=== PATIENT | female | born 1955 | race Caucasian/White ===

== ENCOUNTER 2018-04-04 07:58 | Outpatient (CLI) | payer OTHER ==
[2018-04-04 08:25] LABS: Hemoglobin 15.5 g/dL (12.0-16.0)
[2018-04-04 08:35] LABS: ALT (SGPT) 15 U/L (8-55); AST (SGOT) 20 U/L (5-34); Albumin 4.3 g/dL (3.4-4.8); Alkaline Phosphatase 45 U/L (40-150); Anion Gap 13 mmol/L (10-20); BUN (Urea Nitrogen) 18 mg/dL (9.8-20.1); Bilirubin, Total 0.8 mg/dL (0.2-1.2); Calc. Creatinine Clearance 0 mL/min (70-130); Calcium 9.9 mg/dL (7.8-10.44); Carbon Dioxide 29 mmol/L (23-31); Cardiac Risk 3.2 (Less than 4.5); Chloride 102 mmol/L (98-107); Cholesterol 190 mg/dl (< 200 Desired); Estimated GFR-MDRD 69; Glucose 96 mg/dL (80-115); HDL Cholesterol 60 mg/dL (>60 Neg Risk); LDL Cholesterol, Calculated 95 mg/dL; Potassium 3.9 mmol/L (3.5-5.1); Protein, Total 7.3 g/dL (6.0-8.3); Sodium 140 mmol/L (136-145); Triglycerides 176 mg/dL (Less than 150)
== END 2018-04-04 07:59 | disposition home or self-care (01) ==
LOC: SCSRAD 07:58
PROVIDERS: ATTEND Otolaryngology Otolaryngic Allergy
DX: Z01.818 Encounter for other preprocedural examination (principal); J34.2 Deviated nasal septum; J34.3 Hypertrophy of nasal turbinates; E78.5 Hyperlipidemia, unspecified
CPT/HCPCS: 36415; 80053; 80061; 85014; 85018

== ENCOUNTER 2018-11-05 10:41 | Outpatient (CLI) | payer BC ==
--- NOTE | 2018-11-05 12:16 | MMO ---
BILATERAL MAMMOGRAMS: History: Screening mammography. Comparison: Multiple exams back to 09-08-13. FINDINGS: This study is interpreted with the assistance of computer aided detection. Scattered fibroglandular densities. No dominant mass or suspicious calcification. IMPRESSION: BIRADS category 1 - negative. Suggest routine follow up. POS: [facility]
== END 2018-11-05 10:42 | disposition home or self-care (01) ==
LOC: SCSMAMMO 10:41
PROVIDERS: ATTEND Specialist
DX: Z12.31 Encounter for screening mammogram for malignant neoplasm of breast (principal)
CPT/HCPCS: 77067

== ENCOUNTER 2019-07-22 08:00 | Outpatient (CLI) | payer BC ==
--- NOTE | 2019-07-22 09:08 | ULT ---
US Hepatic Doppler: 07/22/2019 12:00 AM CLINICAL HISTORY: Chronic hepatitis. STUDY: Right upper quadrant ultrasound of liver. TECHNIQUE: Multiplanar grayscale and color Doppler images were obtained in a ultrasound of the right upper quadrant of the abdomen. Spectral analysis of the Doppler waveforms of the hepatic and splenic vessels were performed. COMPARISON: 02/26/2014 FINDINGS: Liver: Size: Normal. Echogenicity: Normal. Contour: Smooth. Mass: None. Bile ducts: No intrahepatic or extrahepatic biliary dilatation. Common bile duct measures 3 mm. Gallbladder: Normal. Pancreas: Head, body, and tail appear normal. Hepatic veins: Normal waveforms. Normal directional flow. Portable veins: Normal waveforms. Normal directional flow. Hepatic arteries: Normal waveforms. Normal directional flow. Splenic vein: Normal waveforms. Normal directional flow. Splenic artery: Normal waveforms. Normal directional flow. The spleen is normal in echogenicity without focal lesions and measures cm in length. IMPRESSION: Unremarkable exam.
== END 2019-07-22 08:01 | disposition home or self-care (01) ==
LOC: SCSULT 08:00
PROVIDERS: ATTEND Internal Medicine Gastroenterology
DX: K21.9 Gastro-esophageal reflux disease without esophagitis (principal); K57.30 Diverticulosis of large intestine without perforation or abscess without bleeding; K64.9 Unspecified hemorrhoids; Z86.19 Personal history of other infectious and parasitic diseases
CPT/HCPCS: 76705

== ENCOUNTER 2019-12-19 11:06 | Outpatient (CLI) | payer OTHER, SELFPAY ==
--- NOTE | 2019-12-19 11:31 | MMO ---
Bilateral MAMMO Bilat Screen [facility]. CLINICAL HISTORY: Patient is 64 years old and is seen for screening. The patient has the following family history of breast cancer: mother. The patient has no personal history of cancer. VIEWS: The views performed were: bilateral craniocaudal with tomosynthesis and bilateral mediolateral oblique with tomosynthesis. FILMS COMPARED: The present examination has been compared to prior imaging studies performed at [facility] on 09/08/2013, 04/13/2015, 08/29/2016 and 08/28/2017. This study has been interpreted with the assistance of computer-aided detection. MAMMOGRAM FINDINGS: There are scattered fibroglandular densities. There are no suspicious masses, suspicious calcifications, or new areas of architectural distortion. IMPRESSION: THERE IS NO MAMMOGRAPHIC EVIDENCE OF MALIGNANCY. A ROUTINE FOLLOW-UP MAMMOGRAM IN 1 YEAR IS RECOMMENDED. THE RESULTS OF THIS EXAM WERE SENT TO THE PATIENT. ACR BI-RADS Category 1 - Negative MAMMOGRAPHY NOTE: 1. A negative mammogram report should not delay a biopsy if a dominant of clinically suspicious mass is present. 2. Approximately 10% to 15% of breast cancers are not detected by mammography. 3. Adenosis and dense breasts may obscure an underlying neoplasm. Reported by: JOYCE FARRELL MD Electonically Signed: [id number]
== END 2019-12-19 11:07 | disposition home or self-care (01) ==
LOC: BICMAMMO 11:06
PROVIDERS: ATTEND Specialist
DX: Z12.31 Encounter for screening mammogram for malignant neoplasm of breast (principal); Z80.3 Family history of malignant neoplasm of breast
CPT/HCPCS: 77063; 77067

== ENCOUNTER 2020-12-28 09:00 | Outpatient (CLI) | payer OTHER, MEDICARE | END 2020-12-28 09:01 | disposition home or self-care (01) | LOC: BICMAMMO 09:00 | PROVIDERS: ATTEND Specialist | DX: Z12.31 Encounter for screening mammogram for malignant neoplasm of breast (principal); M81.0 Age-related osteoporosis without current pathological fracture; Z80.3 Family history of malignant neoplasm of breast | CPT/HCPCS: 77063; 77067; 77080 ==

== ENCOUNTER 2022-08-09 08:13 | Outpatient (CLI) | payer OTHER | END 2022-08-09 08:14 | disposition home or self-care (01) | LOC: SCSRAD 08:13 | PROVIDERS: ATTEND Internal Medicine Cardiovascular Disease | DX: R06.00 Dyspnea, unspecified (principal) | CPT/HCPCS: 71046 ==

== ENCOUNTER 2024-04-21 14:37 | Outpatient (CLI) | payer MEDICARE, OTHER | END 2024-04-21 14:38 | disposition home or self-care (01) | LOC: BICMAMMO 14:37 | PROVIDERS: ATTEND Specialist | DX: Z12.31 Encounter for screening mammogram for malignant neoplasm of breast (principal); Z80.3 Family history of malignant neoplasm of breast | CPT/HCPCS: 77063; 77067 ==

== ENCOUNTER 2025-04-28 11:23 | Outpatient (CLI) | payer MEDICARE | END 2025-04-28 11:24 | disposition home or self-care (01) | LOC: BICMAMMO 11:23 | PROVIDERS: ATTEND Specialist | DX: Z12.31 Encounter for screening mammogram for malignant neoplasm of breast (principal); Z80.3 Family history of malignant neoplasm of breast | CPT/HCPCS: 77063; 77067 ==